=== PATIENT | male | born 2000 | race Caucasian/White ===

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

== ENCOUNTER 2022-10-27 12:18 | Emergency (ER) | payer OTHER ==
[~2022-10-27] VITALS: Ht 185.4 cm; Wt 70.4 kg
[2022-10-27] MEDS ORDERED: MORPHINE SULFATE INJ 2 MG/ml SYRG IV ONE (15:45)
[2022-10-27 18:20] VITALS: BP 112/69
== END 2022-10-27 19:10 | disposition short-term general hospital (02) ==
LOC: ER 12:18 → EDUNIT# 12:18 → EDBD 12:18 → ER 19:10
DX: S72.91XA Unspecified fracture of right femur, initial encounter for closed fracture (principal); S90.512A Abrasion, left ankle, initial encounter; M25.562 Pain in left knee; M25.511 Pain in right shoulder; Z20.822 Contact with and (suspected) exposure to COVID-19; V26.99XA Unspecified rider of other motorcycle injured in collision with other nonmotor vehicle in traffic accident, initial encounter; Y93.89 Activity, other specified; Y92.89 Other specified places as the place of occurrence of the external cause; Y99.8 Other external cause status
CPT/HCPCS: 36415; 70450; 71045; 72040; 72125; 72170; 73030; 73562; 73610; 73700; 87426; 96374; 99285; J2270